=== PATIENT | male | born 1955 | race Hispanic/Latino ===

== ENCOUNTER 2018-05-18 11:01 | Outpatient (CLI) | payer OTHER ==
--- NOTE | 2018-05-18 12:34 | ULT ---
NECK ULTRASOUND: HISTORY: The patient has a large soft lump of the upper middle back, below the neck. FINDINGS: Real-time imaging of the area of concern does not show any findings that are suggestive of any type o f discrete cystic or solid mass. This may represent a lipoma. IMPRESSION: Unremarkable ultrasound of the neck. No discrete mass can be identified. POS: [facility]
== END 2018-05-18 11:02 | disposition home or self-care (01) ==
LOC: SCSULT 11:01
PROVIDERS: ATTEND Family Medicine
DX: R22.1 Localized swelling, mass and lump, neck (principal)
CPT/HCPCS: 76536

== ENCOUNTER 2020-03-28 13:44 | Outpatient (CLI) | payer OTHER ==
--- NOTE | 2020-03-28 15:16 | MRI ---
LUMBAR CERVICAL SPINE WITHOUT CONTRAST: 03/28/20 INDICATION: History of right reynold numbness and pain. COMPARISON: None. FINDINGS: The visualized aspects of the posterior fossa appear within normal limits. Bone marrow signal intensi ty appears within normal limits. There is very slight anterior translation of C3 on C4. There is very slight retrolisthesis of C6 on C7. Visualized prevertebral and paravertebral soft tissues appear within normal limits. At C2-C3, there is moderate right and mild left facet joint degenerative change. There is mild right neural foraminal narrowing. At C3-4, there is moderate facet joint degenerative change. There is no appreciable central canal or neural foraminal narrowing. At C4-5, there is a disc osteophyte complex with uncovertebral hypertrophy and facet hypertrophy lala cing moderate to severe bilateral neural foraminal narrowing and mild central canal narrowing. At C5-6, there is a broad based, asymmetric to the right disc osteophyte complex with uncovertebral h ypertrophy inducing moderate to severe right and mild left neural foraminal narrowing. There is mild central canal narrowing. At C6-7, there is a broad based disc osteophyte complex with uncovertebral hypertrophy inducing mild right and severe left neural foraminal narrowing. There is mild central canal narrowing at this level . At C7-T1, there is no appreciable central canal or neural foraminal narrowing. IMPRESSION: Multilevel central canal and neural foraminal narrowing as described. POS: [facility]
== END 2020-03-28 13:45 | disposition home or self-care (01) ==
LOC: TBSIIMAG 13:44
PROVIDERS: ATTEND Neurological Surgery
DX: M54.12 Radiculopathy, cervical region (principal); M48.02 Spinal stenosis, cervical region
CPT/HCPCS: 72141